=== PATIENT | female | born 1990 | race Two or more races ===

== ENCOUNTER 2016-08-13 23:02 | Day surgery (SDC) | payer MEDICAID ==
[2016-08-13] MEDS ORDERED: IOPAMIDOL 300 (61%) 100 ML VIAL IV ONE (23:03)
[2016-08-13 23:29] LABS: SPECIFIC GRAVITY 1.025 (1.001-1.030); URINE BILIRUBIN NEGATIVE (NEGATIVE); URINE BLOOD 2+ (NEGATIVE); URINE GLUCOSE (UA) NEGATIVE (NEGATIVE); URINE LEUKOCYTE ESTERASE NEGATIVE (NEGATIVE); URINE NITRITE NEGATIVE (NEGATIVE); URINE PROTEIN TRACE (NEGATIVE); URINE UROBILINOGEN NORMAL (0-1 mg/dl)
[2016-08-13 23:33] LABS: HCG,QUALITATIVE URINE NEGATIVE
[2016-08-13 23:34] LABS: URINE APPEARANCE HAZY; URINE COLOR YELLOW
[2016-08-13 23:35] LABS: URINE BACTERIA 0
[2016-08-14 01:23] LABS: BASO % 0.4 % (0.2-1.0); EOS % 0.1 % (0.9-2.9); HEMATOCRIT 45.9 % (37.0-47.0); HEMOGLOBIN 14.7 gm/l (12.0-16.0); IMM NEUT% 0.4 % (0-1); LYMPH # 1.3 (1.0-4.8); LYMPH % 12.3 % (15-45); MEAN CELL VOLUME 86.6 fl (81.0-99.0); MEAN CORPUSCULAR HEMOGLOBIN 27.7 pg (27.0-31.0); MEAN PLATELET VOLUME 11.3 fl (7.4-10.4); MONO # 0.4 (0.0-0.8); MONO % 3.4 % (4-12); NEUT % 83.4 % (43-75); PLATELET COUNT 267 K/mm3 (130-400); RED CELL DISTRIBUTION WIDTH 13.8 % (11.5-14.5)
[2016-08-14 01:37] LABS: ALB/GLOB RATIO 1.4 (>1.0); ALBUMIN 4.5 gm/dL (3.5-5.7); CALCIUM 9.6 mg/dL (8.6-10.3)
[2016-08-14] MEDS ORDERED: HYDROMORPHONE HCL 0.5 MG/0.5 ML SYRINGE ONE ×2 (01:46→02:42)
[2016-08-14] MEDS ORDERED: ONDANSETRON 4 MG/2ML 2 ML VIAL ONE ×2 (01:46→05:02)
[2016-08-14] MEDS ORDERED: MIDAZOLAM HCL 1 MG/ML 2ML VIAL ONE ×2 (02:56)
[2016-08-14] MEDS ORDERED: LACTATED RINGERS 1,000 ML ONE (03:59)
[2016-08-14] MEDS ORDERED: CEFTRIAXONE 1 GRAM DUPLEX 0 ML IV ONE (04:13)
[2016-08-14] MEDS ORDERED: CEFAZOLIN SODIUM 1 GM IV ONE (04:20)
[2016-08-14] MEDS ORDERED: FENTANYL 100 MCG/2 ML VIAL ONE (04:31)
[2016-08-14] MEDS ORDERED: SODIUM CHLORIDE 0.9% FLUSH 10 ML ONE ×2 (04:42→05:02)
[2016-08-14] MEDS ORDERED: CEFAZOLIN SODIUM 1,000 MG VIAL ONE ×2 (04:42→05:16)
[2016-08-14] MEDS ORDERED: BUPIVACAINE 0.5% W/EPI SDV 30 ML VIAL ONE (04:42)
[2016-08-14] MEDS ORDERED: KETOROLAC TROMETHAMINE 30 MG/ML 1 ML VIAL ONE (05:02)
[2016-08-14] MEDS ORDERED: FAMOTIDINE 10 MG/ML 2ML VIAL ONE (05:02)
[2016-08-14] MEDS ORDERED: METOCLOPRAMIDE HCL 5 MG/ML 2ML VIAL ONE (05:02)
[2016-08-14] MEDS ORDERED: SUCCINYLCHOLINE CHL 20 MG/ML DOSE ONE (05:02)
[2016-08-14] MEDS ORDERED: PROPOFOL 20 ML IV ONE (05:02)
[2016-08-14] MEDS ORDERED: ROCURONIUM BROMIDE 10 MG/ML DOSE IV ONE (05:08)
[2016-08-14] MEDS ORDERED: HYDROMORPHONE HCL 2 MG/ML SYRINGE ONE (05:08)
[2016-08-14] MEDS ORDERED: PROMETHAZINE HCL 25 MG/ML VIAL IM PRN (05:25)
[2016-08-14] MEDS ORDERED: NALOXONE HCL 0.4 MG/ML VIAL IV PRN (05:25)
[2016-08-14] MEDS ORDERED: ONDANSETRON 4 MG/2ML 2 ML VIAL IV PRN (05:25)
[2016-08-14] MEDS ORDERED: MORPHINE SULFATE 4 MG/ML SYRINGE IV PRN ×2 (05:25→06:59)
[2016-08-14] MEDS ORDERED: ATROPINE SULFATE 0.4 MG/1 ML VIAL IV PRN (05:25)
[2016-08-14] MEDS ORDERED: HYDRALAZINE HCL 20 MG/1 ML VIAL IV PRN (05:25)
[2016-08-14] MEDS ORDERED: MEPERIDINE 25 MG/ML SYRINGE IV PRN (05:25)
[2016-08-14] MEDS ORDERED: LACTATED RINGERS 1,000 ML IV SCH (05:30)
[2016-08-14] MEDS ORDERED: GLYCOPYRROLATE 0.2 MG/ML 1ML VIAL ONE (06:04)
[2016-08-14] MEDS ORDERED: NEOSTIGMINE METHYLSULFATE 1 MG/ML DOSE ONE (06:04)
[2016-08-14] MEDS ORDERED: MORPHINE SULFATE 2 MG/ML SYRINGE IV PRN (06:53)
[2016-08-14] MEDS ORDERED: MORPHINE SULFATE 10 MG/ML SYRINGE IV PRN (07:00)
[2016-08-14] MEDS ORDERED: PUMP TUBING ONE (07:33)
[2016-08-14] MEDS: SODIUM CHLORIDE 0.9% 1,000 ML IV SCH ×2 (07:37→21:09)
--- NOTE | 2016-08-14 08:54 | HP ---
DATE: 08/14/2016 CHIEF COMPLAINT: Abdominal pain. HISTORY OF PRESENT ILLNESS: The patient is a 25-year-old female who was seen in the emergency room in consultation early in the morning on 08/14/2016. The patient presented to the emergency room last night with periumbilical pain that started last night. She has had a hernia for at least five years. The pain was intense and she could not get the hernia to reduce. She had nausea with vomiting, no fevers. She presented to the emergency room where she had a CT scan. The CT scan documents fluid in small bowel within the hernia. This was not reducible. Surgery was consulted. PAST MEDICAL HISTORY: Asthma, obesity. PAST SURGICAL HISTORY: None. CURRENT MEDICATIONS: None. ALLERGIES: NONE KNOWN. FAMILY HISTORY: No family history of cancer, diabetes, or heart problems. SOCIAL HISTORY: She is . She does not smoke. She rarely drinks alcohol. Denies drug use. REVIEW OF SYSTEMS: Constitutional - No complaints. Eyes - No complaints. Ears, nose, throat - No complaints. Cardiac - No complaints. Pulmonary - No complaints. Gastrointestinal - As above. Genitourinary - No complaints. Gynocologic - No complaints. Musculoskeletal - No complaints. Neurologic - No complaints. Endocrine - No complaints. Hematologic: No complaints. Psychiatric - No complaints. PHYSICAL EXAMINATION: VITAL SIGNS: Temperature 97.7. Pulse 72. Blood pressure: 125/80. Respirations 16. GENERAL: She is awake, alert, appears in no acute distress. HEAD: Atraumatic, normocephalic. EYES: Pupils equal. Sclerae nonicteric. OROPHARYNX: No erythema. NECK: Supple without lymphadenopathy or thyromegaly. LUNGS: Clear to auscultation. Normal respiratory effort. HEART: Regular rate and rhythm. No murmurs heard. ABDOMEN: Obese, soft, nondistended. She has a firm palpable mass below the umbilicus. This is not reducible. It is tender. There is no overlying erythema. EXTREMITIES: Without cyanosis, clubbing, or edema. NEUROLOGIC: She is alert and oriented. Sensation grossly intact at all extremities. PSYCHIATRIC: Shows no signs of anxiety or depression. Appears able to make informed medical decisions. LABORATORY: Sodium 139, potassium 3.8, chloride 104, carbon dioxide 26, BUN 13, creatinine 0.6, glucose 125. Liver function tests are normal. White blood cell count 10.7, hemoglobin 14.7, platelets 267. CT scan was reviewed. There is fluid within hernia sac. There is small bowel within and does not appear proximally obstructed. There is no pneumotosis. ASSESSMENT: 1. Incarcerated ventral/umbilical hernia. 2. Obesity. 3. Asthma. PLAN: With the amount of pain that she is having, I am suspicious for small bowel ischemia. Recommend an urgent operation. We discussed the procedure of ventral hernia repair. We talked about possible small bowel resection. We talked about the use of mesh. I would not use synthetic mesh in the setting of a bowel resection if required. We discussed risks of bleeding, infection, hernia recurrence. We talked about postop recovery. She expressed understanding and is willing to proceed. We will give her Ancef preoperatively. We will treat her asthma if symptomatic. CC: MD ANGELICA Nova/james [id number]
--- NOTE | 2016-08-14 09:11 | OP ---
DATE: 08/14/2016 PREOPERATIVE DIAGNOSIS: Incarcerated ventral hernia. POSTOPERATIVE DIAGNOSIS: Incarcerated ventral hernia with ischemic small bowel. PROCEDURE: Repair of incarcerated ventral hernia with medium ventral XST mesh patch. SURGEON: Hill Cazares MD ANESTHESIA: Endotracheal. INDICATION: This is a 25-year-old female who presents to the emergency room with an unreducible hernia. CAT scan shows small bowel incarcerated within. She was taken urgently to the operating room. DESCRIPTION: With informed consent, she was taken to the operating room. She was laid supine on the operating table. General endotracheal anesthetic was administered. The abdomen was prepped and draped in the usual fashion. Local anesthetic was administered in the skin below the umbilicus. A curvilinear incision was made. We dissected down to a hernia sac. This was dissected free of the umbilical skin. I opened the sac to drain some red cloudy fluid. This was suctioned. There was clearly ischemic bowel within. I excised the sac down to the level of fascia. I opened the fascial defect on the left side using a right angle and Metzenbaum scissors. Eventually, I was able to open the defect large enough to allow the small bowel to reduce. I did that and allowed the small bowel to sit right below the fascial defect for a period of time. It began to lose its dark color. I then spent a moderate amount of time excising the hernia sac from the level of the fascia. The subcutaneous fat was from the anterior fascia circumferentially. I brought the small bowel out through the fascial defect again and showed that there were only minimal areas of dark ischemia. I let it fall back in and waited another five minutes or so. The entire area of small bowel had pinked up. It was edematous but appeared completely viable. I felt that it was most likely going to survive and the risks would be higher with resection at this point. I made sure that there was omentum covering the small bowel. I chose a medium ventral mesh patch. This was placed intraabdominal. Care was taken to ensure that there were no visceral structures between the mesh and the abdominal wall. We made sure it was lying flat. It was secured circumferentially with 0 Vicryl. I was able actually to close most the fascia over the mesh to prevent bridging. The wound was irrigated. We appeared to have adequate hemostasis. The umbilical skin was sutured down to the fascia with some 3-0 Vicryl. Subcutaneous tissue brought together with 3-0 Vicryl. Skin was closed with a running subcuticular 4-0 Monocryl. Masol and Steri-Strips were placed. Dressings were applied. She tolerated the procedure. She was taken to the recovery room in stable condition. [place], instrument, lap counts were reported as correct at the time of closure. Calixto [id number] # [id number]
--- NOTE | 2016-08-14 09:19 | CT ---
Exam: CT abdomen and pelvis with contrast COMPARISON: None INDICATION: Periumbilical pain, concern for incarcerated hernia. TECHNIQUE: CT examination of the abdomen and pelvis was obtained following the administration of 100 mL Isovue-300 intravenous contrast. FINDINGS: There is an anterior abdominal wall hernia at the level of the umbilicus which contains a focal loop of small bowel, fat and a small amount of fluid. The small bowel within the hernia is relatively dilated. Although there is no evidence of bowel obstruction proximal, findings do raise concern for an incarcerated hernia particularly given the fluid. 5.0 cm well-circumscribed low-density lesion is identified within the right ovary/right adnexa. Ovaries otherwise unremarkable. IUD is noted within the otherwise unremarkable uterus. The upper pole the left kidney contains a 1.6 cm cyst. Miniscule low density lesion in the upper pole the right kidney is too small to characterize but statistically likely reflect a cyst. Kidneys are otherwise unremarkable. The liver, spleen, pancreas, adrenal glands and gallbladder are unremarkable. Lung bases are clear. IMPRESSION: 1. Periumbilical hernia which contains a small loop of relatively dilated small bowel, fat and fluid which does raise concern for incarceration. There is no evidence of bowel obstruction. 2. 5 cm right ovarian lesion. This is probably benign, however follow-up ultrasound is recommended in 8-12 weeks to ensure resolution. 3. 1.6 cm simple left renal cyst, no clinical concern. A miniscule low density lesion in the upper pole the right kidney is too small to characterize but likely a cyst. 4. IUD. Preliminary report transmitted to the emergency department from [facility] [facility] at 0311 hours 08/14/2016.
[2016-08-14] MEDS ORDERED: PNEUMOCOCCAL 23-VAL P-SAC VAC 0.5 ML VIAL IM V ONE (13:00)
[2016-08-14] MEDS ORDERED: FLU VACC 2016-17 (36MO-64Y)/PF 60 MCG/0.5 ML SYRINGE IM V ONE (13:00)
[2016-08-14] MEDS: OXYCODONE HCL 5 MG TABLET PO PRN ×2 (14:23→17:33)
[2016-08-14 15:58] VITALS: BMI 30.6
[2016-08-14] MEDS: ONDANSETRON 4 MG/2ML 2 ML VIAL IV PRN (18:14)
[2016-08-14] MEDS: KETOROLAC TROMETHAMINE 30 MG/ML 1 ML VIAL IV PRN (18:14)
[2016-08-15] MEDS: KETOROLAC TROMETHAMINE 30 MG/ML 1 ML VIAL IV PRN ×2 (02:51→07:33)
--- NOTE | 2016-08-15 06:50 | PDOC43 ---
- Subjective Subjective: Reports Pain Tolerable, Denies Nausea - Objective Vital Signs Temperature 98.4 F 08/15/16 04:30 Pulse Rate 75 08/15/16 04:30 Respiratory Rate 16 08/15/16 04:30 Blood Pressure 121/71 08/15/16 04:30 O2 Saturation by Pulse Oximetry 99 08/15/16 04:30 Oxygen Delivery Method Room Air Oxygen Flow Rate 0 Laboratory 08/14/16 00:15 08/14/16 00:15 Active Medication Orders Category Date Time Status Ketorolac Tromethamine [Toradol] Med 08/14/16 11:00 Active 30 mg IV Q6H PRN Morphine Sulfate Med 08/14/16 06:53 Active 1 - 6 mg IV Q1H PRN Morphine Sulfate Med 08/14/16 06:59 Active 1 - 6 mg IV Q1H PRN Morphine Sulfate Med 08/14/16 07:00 Active 1 - 6 mg IV Q1H PRN Ondansetron 4 mg/2ml Vial [Zofran] Med 08/14/16 06:53 Active 4 mg IV Q6H PRN Oxycodone HCl [Roxicodone] Med 08/14/16 06:53 Active 5 - 10 mg PO Q4H PRN Sodium Chloride 0.9% 1,000 ml Med 08/14/16 06:53 Active IV 75 mls/hr Sodium Chloride 0.9% Flush [Normal Saline 10ml Flush] Med 08/14/16 07:06 Active 10 - 50 ml IV PRN PRN Sodium Chloride 0.9% Flush [Normal Saline 10ml Flush] Med 08/14/16 09:00 Active 10 ml IV Q8HR Intake and Output 08/13/16 08/14/16 08/15/16 06:59 06:59 06:59 Intake Total 2931 Output Total 1300 Balance 1631 General: Alert, Oriented x3 Abdomen: Soft, Non-Distended Wound: Dressing Clean/Dry/Intact - Assessment/ Plan (1) Incarcerated ventral hernia Status: AcuteAssessment/ Plan: Doing well. Advance diet. Home this am.
[2016-08-15] MEDS: ONDANSETRON 4 MG/2ML 2 ML VIAL IV PRN (07:33)
[2016-08-15 07:34] VITALS: BP 131/63
== END 2016-08-15 10:52 | disposition home or self-care (01) ==
LOC: ED 23:02 → SDC 08-14 04:09 → MS 08-14 04:36 → SDC 08-15 10:52
PROVIDERS: ATTEND Surgery
PROC: 0WUF0JZ Supplement Abdominal Wall with Synthetic Substitute, Open Approach (ICD-10-PCS; principal; 2016-08-13)
PROC: 3E0234Z Introduction of Serum, Toxoid and Vaccine into Muscle, Percutaneous Approach (ICD-10-PCS; 2016-08-13)
DX: K43.6 Other and unspecified ventral hernia with obstruction, without gangrene (principal); Z23 Encounter for immunization; E66.9 Obesity, unspecified; J45.909 Unspecified asthma, uncomplicated; Z68.36 Body mass index [BMI] 36.0-36.9, adult